=== PATIENT | female | born 1990 | race Caucasian/White ===

== ENCOUNTER 2019-08-02 16:47 | Emergency (ER) | payer OTHER, SELFPAY ==
--- NOTE | ~2019-08-02 | XR_ITS ---
EXAMINATION: XR chest 2V DATE: 08/02/2019 18:15 INDICATION: Cough and lethargy TECHNIQUE: PA and lateral views of the chest were obtained. COMPARISON: None FINDINGS: The lungs are clear with no focal airspace opacities, pulmonary edema, pleural effusion or pneumothor ax. The cardiomediastinal silhouette is normal. Visualized bones and soft tissues are unremarkable. IMPRESSION: 1. Normal chest radiograph. Reviewed, dictated and finalized at location A. MIXER IMPRESSION: 1. Normal chest radiograph.
[2019-08-02 17:20] VITALS: BP 131/84; PULSE 108; RESP 20; TEMP 37.6; O2SAT 100
--- NOTE | 2019-08-02 17:40 | ED.URI ---
HPI - URI/Sore Throat General Chief Complaint: Upper Respiratory Infection Stated Complaint: Ciough/Congestion Time Seen by Provider: 08/02/19 17:40 Source: patient and family History of Present Illness HPI Narrative: Patient presents with a three-week history of cough postnasal drainage and congestion. Patient states she was to treated 2 weeks ago for viral illness and allergies and given Claritin and Flonase. Patient states she has been taking them as prescribed and continues to have chest congestion and cough. Patient denies any shortness of breath or chest pain. Denies any fever. Patient is worried that she might have pneumonia. MD elicited complaint: cough, nasal congestion and sinus pain Related Data Home Medications Medication Instructions Recorded Confirmed Multiple Vitamins 07/15/19 Calcium 08/02/19 Iron 08/02/19 Vitamin B 12 08/02/19 Vitamin D 08/02/19 Allergies Allergy/AdvReac Type Severity Reaction Status Date / Time cefaclor Allergy Unknown Unknown Verified 07/15/19 18:29 Review of Systems Review of Systems: Narrative: CONSTITUTIONAL: Denies fever, chills, or sweats. EYES: Denies visual changes, redness, or discharge. ENT: Denies rhinorrhea, congestion, sore throat, or otalgia. CARDIOVASCULAR: Denies chest pain, palpitations, or edema. RESPIRATORY: Denies dyspnea. Loose congested cough worse at night GASTROINTESTINAL: Denies abdominal pain, nausea, vomiting, or diarrhea. GENITOURINARY: Denies dysuria or hematuria. SKIN: Denies rash or itching. MUSCULOSKELETAL: Denies back pain, joint pain, or myalgia. NEUROLOGIC: Denies headache, numbness, or weakness. PSYCHIATRIC: Denies anxiety or depression. PMFSH Surgical History Surgical History History of gastric bypass Comments At time of signature, agree with nursing past medical, surgical, social and family history. There is no relevant family history pertinent to the presenting complaint Exam Narrative: Exam Narrative: GENERAL: Well-appearing, well-nourished, and in no acute distress. HEAD: Normocephalic, atraumatic. EYES: PERRLA and EOMI. ENT: Moderate amount of postnasal drainage mild pharyngeal erythremia, no trismus able to open mouth fully no drooling. NECK: Supple. CHEST: Clear to auscultation. No respiratory distress. HEART: Regular rate and rhythm. No murmur heard. Normal peripheral pulses. ABDOMEN: Soft, nontender, nondistended, normal active bowel sounds. EXTREMITIES: Normal range of motion. No edema. SKIN: Warm, dry, no rash. NEURO: No focal deficits. Alert and oriented x3. Curtis Coma Scale Eye Opening: Spontaneous 4 [place] Coma Scale Motor: Obeys Commands 6 [place] Coma Scale Verbal: Oriented 5 [place] Coma Scale Total 15 Const: General: no acute distress Orientation/consciousness: patient oriented x3 Course Vital Signs Vital signs: Vital Signs Temperature 37.6 C H 08/02/19 17:20 Pulse Rate 108 H 08/02/19 17:20 Respiratory Rate 20 08/02/19 17:20 Blood Pressure 131/84 08/02/19 17:20 Pulse Oximetry 100 08/02/19 17:20 Temperature 37.6 C H 08/02/19 17:20 Pulse Rate 108 H 08/02/19 17:20 Respiratory Rate 20 08/02/19 17:20 Blood Pressure 131/84 08/02/19 17:20 Pulse Oximetry 100 08/02/19 17:20 Please EMIL schedule a followup visit with your personal physician for further evaluation and treatment. Including recheck and discussion of your blood pressure. If your symptoms persist, change or worsen significantly before you can contact your personal physician then please, without delay, go to the emergency department for further evaluation MDM - URI/Sore Throat Differential Diagnosis Differential diagnosis: Likely upper respiratory infection, croup, otitis media, sinusitis and viral infection Lab Data Labs: UCG Bedside Result Negative Reference Range: Negative Critical Care Time Critical Care Time Critical
== END 2019-08-02 18:45 | disposition home or self-care (01) ==
PROVIDERS: Emergency Provider Nurse Practitioner Family
DX: J40 Bronchitis, not specified as acute or chronic (principal); J11.1 Influenza due to unidentified influenza virus with other respiratory manifestations; Z98.84 Bariatric surgery status
CPT/HCPCS: 71046; 81025; 87804; 99213; G0463

== ENCOUNTER 2020-08-22 15:26 | Outpatient (CLI) | payer OTHER, SELFPAY ==
[2020-08-22 17:03] LABS: HIV 1/2 Ab P24 Ag Result Negative (Negative)
[2020-08-22 17:18] LABS: Hepatitis B Surface Antigen Negative (Negative)
[2020-08-22 17:36] LABS: Hepatitis C Virus Antibody Negative (Negative)
[2020-08-25 09:55] LABS: Rapid Plasma Reagin Non-Reactive (NonReactive)
== END 2020-08-22 15:27 | disposition home or self-care (01) ==
LOC: ANHLAB 15:28
PROVIDERS: PCP Internal Medicine; Visit Provider Obstetrics & Gynecology
DX: Z20.828 Contact with and (suspected) exposure to other viral communicable diseases (principal)
CPT/HCPCS: 36415; 86592; 86695; 86696; 86703; 86803; 87340; G0432

== ENCOUNTER 2021-08-05 18:51 | Emergency (ER) | payer OTHER, SELFPAY ==
[2021-08-05 18:57] VITALS: BP 148/110; PULSE 109; RESP 14; TEMP 37.3; O2SAT 100
[2021-08-05 19:10] VITALS: BP 148/110; PULSE 109; RESP 14; TEMP 37.3; O2SAT 100
--- NOTE | 2021-08-05 19:20 | ED.URI ---
HPI - URI/Sore Throat General Chief Complaint: Upper Respiratory Infection Stated Complaint: Cough Time Seen by Provider: 08/05/21 19:08 Source: patient and RN notes reviewed Mode of arrival: ambulatory Limitations: no limitations History of Present Illness HPI Narrative: Patient presents today complaining of right-sided chest wall pain that occurred 2 days ago that is currently absent. She was sick 3 weeks ago with fever, cough, congestion, fatigue. States most of her symptoms had improved, but she is continuing to complain of a cough with green sputum, shortness of breath with exertion, fatigue. She is not taking any medication for symptoms prior to arrival. She has not been vaccinated against COVID-19. Patient is a [employer]. MD elicited complaint: cough Related Data Home Medications Medication Instructions Recorded Confirmed calcium citrate 1,000 mg tablet 1,000 mg PO DAILY 08/22/20 08/05/21 cholecalciferol (vitamin D3) 25 25 mcg PO DAILY 08/22/20 08/05/21 mcg (1,000 unit) capsule mecobalamin (vitamin B12) 1,000 1,000 mcg SUBLINGUAL DAILY 08/22/20 08/05/21 mcg disintegrating tablet,sublingual Allergies Allergy/AdvReac Type Severity Reaction Status Date / Time cefaclor Allergy Unknown Verified 08/05/21 19:21 Review of Systems Review of Systems: CONSTITUTIONAL: Denies body aches, fever, chills, or sweats.+ Fatigue EYES: Denies visual changes, redness, or discharge. ENT: Denies rhinorrhea, congestion, sore throat, or otalgia. CARDIOVASCULAR: Denies chest pain, palpitations, or edema. RESPIRATORY: + Cough, shortness of breath with exertion. + Chest wall pain?resolved GASTROINTESTINAL: Denies abdominal pain, nausea, vomiting, or diarrhea. GENITOURINARY: Denies dysuria or hematuria. SKIN: Denies rash, itching, or wounds. MUSCULOSKELETAL: Denies back pain, joint pain, or myalgia. NEUROLOGIC: Denies headache, numbness, tingling, or weakness. PSYCH: Denies depression or anxiety. [facility] Past Medical History Medical History Acid reflux Anxiety Asthma Depression HSV (herpes simplex virus) infection Type 1 Hypertension PCOS (polycystic ovarian syndrome) Surgical History Surgical History History of gastric bypass Family History Family History Other Breast cancer aunt Diabetes mellitus uncle Grandparent Acute myocardial infarction grandmother, grandfather Hypertension grandmother Hypercholesteremia Mother Hypertension PCOS (polycystic ovarian syndrome) Sibling Hypertension sister PCOS (polycystic ovarian syndrome) Social History Social History Smoking status: Never smoker Alcohol intake: current Alcohol use details: rare Substance use: never Comments At time of signature, I have reviewed and agree with nursing past medical, surgical, social and family history unless otherwise noted. Please see nursing chart for further information. There is no relevant family history pertinent to the presenting complaint Exam Narrative: GENERAL: Well-appearing, well-nourished, and in no acute distress. HEAD: Normocephalic, atraumatic. EYES: EOMI. No redness or drainage. Conjunctivae normal. ENT: Mucous membranes pink and moist. Nares congested. No rhinorrhea. TMs normal bilaterally. Throat normal. Uvula midline. NECK: Normal AROM. Supple. No lymphadenopathy. CHEST: No respiratory distress. Clear to auscultation. Right upper chest wall tenderness at the sternal border. HEART: Regular rate and rhythm. No murmur appreciated. Normal peripheral pulses. ABDOMEN: Soft, nontender, nondistended, normal active bowel sounds. MUSCULOSKELETAL: No bony tenderness. EXTREMITIES: Normal range of motion. No edema. SKIN: Warm, dry, n
== END 2021-08-05 19:30 | disposition home or self-care (01) ==
PROVIDERS: Emergency Provider Nurse Practitioner; PCP Internal Medicine
DX: J40 Bronchitis, not specified as acute or chronic (principal); M94.0 Chondrocostal junction syndrome [Tietze]; J06.9 Acute upper respiratory infection, unspecified; K21.9 Gastro-esophageal reflux disease without esophagitis; J45.909 Unspecified asthma, uncomplicated; I10 Essential (primary) hypertension; E28.2 Polycystic ovarian syndrome; Z98.84 Bariatric surgery status
CPT/HCPCS: 99213; G0463